=== PATIENT | female | born 1995 | race Caucasian/White ===

== ENCOUNTER → 2023-05-20 | Outpatient (CLI) | payer BC ==
[2023-05-20 21:05] LABS: Basophils # (A) 0.04 X 10*3/uL (0.00-0.10); Basophils % (A) 0.4 %; Eosinophils # (A) 0.16 X 10*3/uL (0.04-0.35); Eosinophils % (A) 1.5 %; HCT 37.2 % (37.2-46.3); Lymphocytes # (A) 2.54 X 10*3/uL (0.90-5.00); Lymphocytes % (A) 23.3 %; MCHC 32.3 d/dL (32.0-37.0); MCV 80.7 FL (80.0-97.0); Mean Platelet Volume 10.7 FL (9.5-12.2); Monocytes # (A) 0.58 X 10*3/uL (0.20-1.00); Monocytes % (A) 5.3 %; NRBC Per 100 WBC 0 X 10*3/uL (0.00-0.01); Neutrophils # (A) 7.56 X 10*3/uL (1.80-7.70); Neutrophils % (A) 69.1 %; Platelet Count 335 X 10*3/uL (140-440); RBC 4.61 X 10*6/uL (4.10-5.20); RDW 13.4 % (11.5-14.5); WBC 10.92 X 10*3/uL (4.50-10.00)
== END | disposition home or self-care (01) ==
LOC: LABPAT 15:00
PROVIDERS: ATTEND Obstetrics & Gynecology
DX: Z01.812 Encounter for preprocedural laboratory examination (principal)
CPT/HCPCS: 85025

== ENCOUNTER 2023-05-21 11:15 | Day surgery (SDC) | payer BC ==
[2023-05-14 11:33] VITALS: BMI 29.8
--- NOTE | 2023-05-20 07:24 | P.HPOB ---
History of Present Illness H&P Date: 05/20/23 Chief Complaint: Missed . This patient is a pleasant 28-year-old 1 para 0 female estimated gestational age 8-1/2 weeks who had an initial ultrasound that showed a heart beat, however subsequent follow-up showed an 8-1/2 week nonviable intrauterine . Patient has had no bleeding and despite waiting has not passed the and therefore is requesting suction D&C for treatment at this time. Beta-hCG was 151,240. Review of Systems Genitourinary: Reports as per HPI, Reports Menstruation: Reports amenorrhea Past Medical History Past Medical History: No Reported History Additional Past Medical History / Comment(s): missed ab- LMP 02/22/23 History of Any Multi-Drug Resistant Organisms: None Reported Additional Past Surgical History / Comment(s): pin in finger (10 yrs ago) Past Anesthesia/Blood Transfusion Reactions: No Reported Reaction Past Psychological History: No Psychological Hx Reported Smoking Status: Never smoker Past Alcohol Use History: None Reported Past Drug Use History: None Reported - Past Family History Mother Family Medical History: No Reported History Medications and Allergies Home Medications Medication Instructions Recorded Confirmed Type No Known Home Medications 05/14/23 05/14/23 History Allergies Allergy/AdvReac Type Severity Reaction Status Date / Time No Known Allergies Allergy Verified 05/14/23 11:34 Exam - OBG Physical Exam Abdomen: bowel sounds normal, no diffuse tenderness, no bruit present, no guarding noted, no hepatomegaly, no splenomegaly, no mass Vulva: both: normal Vagina: normal moisture, no discharge Cervix: no lesion, no discharge Uterus: enlarged, normal contour Results Ultrasound on May 08 shows an 8-1/2 week nonviable intrauterine . Assessment and Plan Assessment: This is a pleasant 28-year-old 1 para 0 female 8 and half weeks gestation with known missed . Despite expectant management patient has not passed the at this time is requesting suction D&C for treatment. Patient's beta-hCG was also significantly elevated therefore I did instruct her that there is a possibility, albeit low, that this could be a molar . She understands the risk of the surgery including risks of infection, bleeding, possible uterine perforation. All the patient's questions are answered and a written consent is obtained. (1) Missed Status: Acute Code(s): O02.1 - MISSED SNOMED Code(s): 34579262
[~2023-05-21 11:15] MED LIST: Pre Op ABX Message 1 EACH MISC MISCELLANE ONE
[2023-05-21] MEDS ORDERED: LACTATED RINGERS 1,000 ML IV SCH (11:44)
[2023-05-21] MEDS ORDERED: HYDROmorphone 0.5 MG/0.5 ML SYRINGE IVP PRN (11:44)
[2023-05-21] MEDS ORDERED: ONDANSETRON 4 MG/2 ML VIAL IVP ONE (11:44)
[2023-05-21] MEDS ORDERED: DEXAMETHASONE SOD PHOSPHATE 4 MG/ML 1 ML VIAL IV ONE (11:44)
[2023-05-21] MEDS ORDERED: MIDAZOLAM 2 MG/2 ML VIAL ONE (12:09)
[2023-05-21] MEDS ORDERED: PROPOFOL 10 MG/ML 20 ML VIAL IV ONE (12:09)
[2023-05-21] MEDS ORDERED: LIDOCAINE 2% INJ 20 MG/ML (2 ML VIAL) ONE (12:09)
[2023-05-21] MEDS ORDERED: fentaNYL (PF) 50 MCG/ML 2 ML AMP ONE (12:09)
--- NOTE | 2023-05-21 12:50 | P.OP ---
Date of Procedure: 05/21/23 Preoperative Diagnosis: 8 1/2 week missed Postoperative Diagnosis: Same Procedure(s) Performed: Suction D&C Anesthesia: MAC Surgeon: Rafat Damico Estimated Blood Loss (ml): 200 Urine output (ml): 10 Pathology: other (Uterine contents) Condition: stable Disposition: PACU Indications for Procedure: Please see dictated H&P for intimate details of this patient's admission. Brief summary this pleasant 28-year-old 1 para 0 female estimated gestational age 8-1/2 weeks who presents for suction D&C due to persistent missed . Patient understands this procedure and risks and risks of infection, bleeding, possible uterine perforation. All the patient's questions are answered and a written consent is obtained. Operative Findings: Uterine contents consistent with missed Description of Procedure: This patient is taken to the operating room where she is laid in the supine position. She subsequently undergoes general mask anesthesia without incident. With an adequate level of anesthesia she's placed in dorsal lithotomy position. She has a vaginal perineal prep and drape. Examination under anesthesia shows a mid position uterus slightly enlarged. Weighted speculum was placed in the posterior vagina. Bladder is then drained for 10 mL of clear urine. With this done, I grabbed the anterior lip the cervix with an Allis clamp. The cervix is then gently dilated to allow a 9 curved suction curette easily uterine cavity. Multiple passes are made with the suction curet and a generous amount of tissue is removed. With this done the curet is removed and a thorough but gentle 4 quadrant curettage is then done with a sharp curet. No further tissue was noted. A final pass with the suction curet is done and again no further tissue was noted. Bleeding subsides at this point. The Allis clamp and weighted speculum are removed. All counts are correct 3. There are no complications. Patient is awakened from anesthesia and taken to the recovery room in satisfactory condition.
[2023-05-21 12:53] VITALS: TEMP 97.2
[2023-05-21] MEDS ORDERED: KETOROLAC 15 MG/ML 1 ML VIAL IVP ONE (12:57)
[2023-05-21 13:35] VITALS: BP 119/66; RESP 20
[2023-05-21 14:03] VITALS: PULSE 69
== END 2023-05-21 14:23 | disposition home or self-care (01) ==
LOC: OR 11:15
PROVIDERS: ATTEND Obstetrics & Gynecology
DX: O02.1 Missed abortion (principal); Z3A.08 8 weeks gestation of pregnancy
CPT/HCPCS: 86900; 86901; 86850; 59820; J1100; J2405; J1885; 88305